=== PATIENT | female | born 2000 | race Caucasian/White ===

== ENCOUNTER 2020-09-27 11:29 | Emergency (ER) | payer OTHER, SELFPAY ==
--- NOTE | 2020-09-27 11:34 | ED.GENADULT ---
HPI - General Adult General Chief complaint: Urogenital-Female Stated complaint: uti symptoms Time Seen by Provider: 09/27/20 11:32 Source: patient Mode of arrival: ambulatory Limitations: no limitations History of Present Illness HPI narrative: 20 y/o female. PMH includes: None reported. [facility] with acute complaints of urinary frequency, urgency, malodorous urine, and dysuria for the past 4 days. She denies fever, chills. No abdominal pain, Flank pain, N/V. No pelvic pain or vaginal discharge. She adds to HPI, that she had taken 'Plan B' emergency contraceptive on Wednesday09/22/2020, and is also experiencing her monthly menstrual cycle now 2 weeks earlier than normal. No dizziness, chest pain, palpitations, dyspnea. She is not filling > 1 PPH. She has not yet sought out medical evaluation until now, today. She is without additional acute complaints of illness upon exam. Related Data Allergies Allergy/AdvReac Type Severity Reaction Status Date / Time No Known Allergies Allergy Verified 09/27/20 11:39 Review of Systems Review of Systems: Narrative: CONSTITUTIONAL: Denies fever, chills, sweats. EYES: Denies visual changes, redness, discharge. ENT: Denies rhinorrhea, congestion, sore throat, otalgia. CARDIOVASCULAR: Denies chest pain, palpitations, edema. RESPIRATORY: Denies dyspnea, wheezing, cough GASTROINTESTINAL: Denies abdominal pain, nausea, vomiting, diarrhea. GENITOURINARY: Positive urgency, dysuria. No hematuria, abnormal discharge. Early Menses. SKIN: Denies rash or itching. MUSCULOSKELETAL: Denies acute back pain, joint pain, or myalgia. NEUROLOGIC: Denies numbness, or focal weakness. PSYCHIATRIC: Denies anxiety or depression. All systems reviewed & are unremarkable except as noted in HPI and below Exam Narrative: Exam Narrative: GENERAL: This is a well-nourished, well-developed patient, in no apparent distress. HEAD: normocephalic, atraumatic. EYES: PERRL. EARS: External ears normal. NOSE: External nose normal. THROAT: Mucous membranes moist, posterior pharynx clear. NECK: Neck supple, non-tender. CARDIOVASCULAR: Regular rate and rhythm without murmurs, gallops, or rubs. RESPIRATORY: Clear to auscultation. Breath sounds equal bilaterally. GASTROINTESTINAL: Abdomen soft, non-tender, nondistended. Bowel sounds are active. No hepato-splenomegaly, or palpable masses. No guarding. No CVA tenderness. SKIN: warm, intact with no suspicious lesions or rash, good texture and turgor. NEURO: awake, alert, and oriented to person, place and time. There were no obvious focal neurologic abnormalities. Course Vital Signs Vital signs: Vital Signs Temperature 36.0 C L 09/27/20 12:00 Pulse Rate 95 09/27/20 12:00 Respiratory Rate 16 09/27/20 12:00 Blood Pressure 149/89 H 09/27/20 12:00 Pulse Oximetry 100 09/27/20 12:00 Temperature 36.0 C L 09/27/20 12:00 Pulse Rate 95 09/27/20 12:00 Respiratory Rate 16 09/27/20 12:00 Blood Pressure 149/89 H 09/27/20 12:00 Pulse Oximetry 100 09/27/20 12:00 The patient has been informed that they may have pre-hypertension or Hypertension based on a BP reading in the clinic. It is recommended that the patient call the primary care provider listed on their discharge instructions or a physician of their choice as soon as possible (within 1-2week) to arrange follow up for further evaluation of possible pre-hypertension or hypertension. Medical Decision Making MDM Narrative Medical decision making narrative: -Urine Dipstick reveals 1+ Leukocytes. Negative Nitrites, and 2 + blood (from active menstrual and most likely external contaminant). -Afebrile, non-tachycardic, and appears non-toxic. -Physical exam essentially benign. -Took Plan B Wednesday09/22/2020: Pt is concerned for early start of menses, actively bleeding. She has been further educated that the hormone Levonorgestrel is found in control pills, but Plan B contai
[2020-09-27 12:00] VITALS: BP 149/89; PULSE 95; RESP 16; TEMP 36; O2SAT 100
== END 2020-09-27 12:01 | disposition home or self-care (01) ==
PROVIDERS: Emergency Provider Nurse Practitioner Adult Health
DX: N93.9 Abnormal uterine and vaginal bleeding, unspecified (principal); N39.0 Urinary tract infection, site not specified
CPT/HCPCS: 81003; 87077; 87086; 87088; 87186; 99213; G0463

== ENCOUNTER 2020-11-29 17:18 | Emergency (ER) | payer OTHER, SELFPAY ==
[2020-11-29 17:28] VITALS: BP 156/107; PULSE 121; RESP 18; TEMP 36.4; O2SAT 100
--- NOTE | 2020-11-29 17:44 | ED.URI ---
HPI - URI/Sore Throat General Chief Complaint: Upper Respiratory Infection Stated Complaint: sinus issues Source: patient and RN notes reviewed Limitations: no limitations History of Present Illness HPI Narrative: The vaccinated overweight patient, non-smoker/nondrinker with pet cats, presents with congestion and cough. Patient states she has 1/2-week history of congestion, nasal drip, scantly productive cough preceded by sore throat. Symptoms are mild unrelieved with OTC preparations like Claritin; no fever, loss of taste/smell, S OB, sore throat now, CP, vomiting/diarrhea, rash, wheezing/sneezing, eye discharge. Related Data Allergies Allergy/AdvReac Type Severity Reaction Status Date / Time No Known Allergies Allergy Verified 11/29/20 17:28 Review of Systems Review of Systems: The patient has been informed that they may have pre-hypertension or Hypertension based on a BP reading in the department. I recommend that the patient call the primary care provider listed on their discharge instructions or a physician of their choice this week to arrange follow up for further evaluation of possible pre-hypertension or Hypertension General/Constitutional: No weight loss,fever Eyes: N0: Redness,discharge Ears/Nose/Throat: No: Epistaxis,ear discharge Respiratory: Denies: Hemoptysis Gastrointestinal: No Vomiting, Bleeding-rectal Skin: No Lumps, eruption Neurologic: No Focal Weakness,Sz Hematologic: Denies: Petechiae/Purpura Psychiatric: No: Suicida ideationl All Other Systems: Reviewed and Negative PMFSH Comments At time of signature, agree with nursing past medical, surgical, social and family history. There is no relevant family history pertinent to the presenting complaint Exam Narrative: General Appearance: Obese/well nourished EYE: PERRLA, Conjunctiva clear Ears: Auditory canal normal, TM normal Nose: Rhinorrhea, Mucousal erythema Mouth/Throat: MM moist, Uvula midline, Pharyngeal erythema Neck: Supple, No adenopathy Respiratory: No respiratory distress, Breath sounds equal, Clear to auscultation Cardiovascular: RRR, No JVD Musculoskeletal: Non tender, Normal strength Skin: Warm, Dry Neurological: A&O x3, CN II-XII intact Psychiatric: Normal mood, Normal affect Course Vital Signs Vital signs: Vital Signs Temperature 97.5 F L 11/29/20 17:28 Pulse Rate 121 H 11/29/20 17:28 Respiratory Rate 18 11/29/20 17:28 Blood Pressure 156/107 H 11/29/20 17:28 Pulse Oximetry 100 11/29/20 17:28 Temperature 97.5 F L 11/29/20 17:46 Pulse Rate 121 H 11/29/20 17:46 Respiratory Rate 18 11/29/20 17:46 Blood Pressure 156/107 H 11/29/20 17:46 Pulse Oximetry 100 11/29/20 17:46 MDM - URI/Sore Throat Lab Data Labs: Lab Results 11/29/20 Range/Units 17:25 POC SARS CoV-2 Ag Negative (Negative) Discharge Plan Discharge Clinical Impression: Purulent rhinitis Patient Disposition: Home, Self-Care Condition: Stable Instructions: Rhinosinusitis (ED) Additional Instructions: You may use and get some benefit from OTC preparations like Flonase, etc. Go to hospital to get PCR test; or ED if worse Prescriptions: New benzonatate [Tessalon Perles] 100 mg capsule 100 mg PO TID Qty: 20 RF: 1 azelastine 137 mcg (0.1 %) aerosol,spray 137 mcg NASAL Q12H Qty: 30 RF: 0 cefuroxime axetil 500 mg tablet 500 mg PO Q12H Qty: 14 RF: 0 Other Ambulatory Orders: SARS-CoV-2 RNA, Qual RT-PCR (Routine) Location: Determined by Patient Ordered By: Omer Lr Follow-up/Referrals: UNKNOWN,DOCTOR [Primary Care Provider] -
[2020-11-29 17:46] VITALS: BP 156/107; PULSE 121; RESP 18; TEMP 36.4; O2SAT 100
== END 2020-11-29 17:51 | disposition home or self-care (01) ==
PROVIDERS: Emergency Provider Emergency Medicine
DX: J31.0 Chronic rhinitis (principal); Z20.822 Contact with and (suspected) exposure to COVID-19
CPT/HCPCS: 87426; 99213; C9803; G0463

== ENCOUNTER 2022-03-04 14:53 | Emergency (ER) | payer OTHER, SELFPAY ==
--- NOTE | 2022-03-04 14:56 | ED.URI ---
HPI - URI/Sore Throat General Chief Complaint: Upper Respiratory Infection Stated Complaint: SORE THROAT/WHITE SPOTS/SWELLING Time Seen by Provider: 03/04/22 15:26 Source: patient and RN notes reviewed Mode of arrival: ambulatory Limitations: no limitations History of Present Illness HPI Narrative: 21-year-old female presents with concern for sore throat. Reports symptoms started 3 days ago and worsened today. She reports she saw white spots on her tonsils today. She reports headache. She denies other symptoms MD elicited complaint: sore throat Related Data Allergies Allergy/AdvReac Type Severity Reaction Status Date / Time No Known Allergies Allergy Verified 03/04/22 15:17 Review of Systems Review of Systems: CONSTITUTIONAL: Denies malaise, chills, sweats, or fever. EYES: Denies visual changes, redness, or discharge. ENT: Denies rhinorrhea, congestion, sinus pain, otalgia. Reports sore throat. CARDIOVASCULAR: Denies chest pain, palpitations, or edema. RESPIRATORY: Denies cough. Denies dyspnea. GASTROINTESTINAL: Denies abdominal pain, nausea, vomiting, diarrhea SKIN: Denies rash or itching. MUSCULOSKELETAL: Denies myalgia. NEUROLOGIC: Reports headache. All systems reviewed & are unremarkable except as noted in HPI and below PMFSH Comments At time of signature, agree with nursing past medical, surgical, social and family history. There is no relevant family history pertinent to the presenting complaint Exam Narrative: GENERAL: Well-appearing, well-nourished, and in no acute distress. HEAD: Normocephalic EYES: PERRLA, conjunctivae clear ENT: Nares clear, turbinates edematous and erythematous, clear discharge. Mucous membranes moist. TM pearly bagley with dull light reflex bilaterally; no tragal tenderness. Oropharynx not erythematous without lesions. Tonsils not enlarged and without exudate, no drooling, no hoarseness, no trismus, uvula midline. NECK: Supple. No lymphadenopathy CHEST: Clear to auscultation, breath sounds equal. No wheezing, rhonchi, rales, or stridor. No respiratory distress, speaks in full sentences. HEART: Regular rate and rhythm. No murmur heard. SKIN: Warm, dry, no rash. NEURO: Alert and oriented x3. PSYCH: Normal mood and affect Course Course Emergency Course: Patient is aware of diagnosis, understands and agrees to treatment plan. Anticipatory guidance given. Patient agrees to follow-up as directed and is aware of reasons to seek care at the emergency department. Portions of this record may have been created with voice recognition software Level of Care: [facility] Visit Vital Signs Vital signs: Reviewed. MDM - URI/Sore Throat MDM Narrative Medical decision making narrative: Differential diagnosis considered: Yin virus, strep pharyngitis, allergic rhinitis, upper respiratory tract infection, sinusitis, rhinosinusitis, nasopharyngitis. viral pharyngitis, otitis media, otitis externa, pneumonia, bronchitis, viral cough syndrome, viral syndrome, and influenza. Exam findings show no acute concerns or changes; patient is non-toxic appearing and is in no distress. Patient is appropriate for outpatient treatment and follow-up. Lab Data Attestation: I reviewed the patient's lab results. Critical Care Time Critical Care Time Critical Care Time: No Discharge Plan Discharge Clinical Impression: Acute tonsillitis Patient Disposition: Home, Self-Care Condition: Stable Instructions: Tonsillitis (ED) Additional Instructions: -Take the medication as prescribed. Throw away the toothbrush after 24hours of antibiotic. -Eat and drink things that are easy to swallow, like tea or soup, or popsicles to suck on. -Oral rinses such as: Salt water gargles and/or may use topical anesthetic (eg. Chloraseptic spray) or lozenges to relieve dryness or throat pain). -Take Tylenol and ibuprofen as needed for pain and fever as directed. -Frequent hand washing or hand [employer] is one of the best wa
[2022-03-04 15:18] VITALS: BP 147/86; PULSE 64; RESP 16; TEMP 37.1; O2SAT 99
== END 2022-03-04 16:08 | disposition home or self-care (01) ==
PROVIDERS: Emergency Provider Nurse Practitioner
DX: J03.90 Acute tonsillitis, unspecified (principal)
CPT/HCPCS: 87081; 87880; 99213; G0463

== ENCOUNTER 2022-12-15 16:05 | Emergency (ER) | payer OTHER, SELFPAY ==
[2022-12-15] VITALS (19 sets, daily range): BP systolic 102–152; BP diastolic 77–87; PULSE 72–103; RESP 10–25; TEMP 36.6–36.8; O2SAT 99–100
--- NOTE | ~2022-12-15 | CT_ITS ---
CT of the Abdomen and Pelvis: Indication: Abdominal pain Technique: 2.5 mm axial scans were obtained through the abdomen and pelvis following intravenous adm inistration of 100 cc of Omnipaque 350. Dose reduction technique was used on this scan by utilizing a utomated exposure control and iterative reconstruction technique. The dose-length product (DLP) was 9 68.03 mGy-cm. Findings: Scans through the lung bases are unremarkable. The liver, spleen, pancreas, gallbladder, adrenals and kidneys are within normal limits. No evidence of aortic aneurysm. No lymphadenopathy. No bowel obstruction or bowel wall thickening. There is no evidence to suggest acute appendicitis. Images through the pelvis were performed. Urinary bladder unremarkable. No significant adnexal mass s een. No ascites. Impression: No significant abnormalities seen. Reviewed, dictated and finalized at [facility]. Impression: No significant abnormalities seen.
--- NOTE | ~2022-12-15 | US_ITS ---
EXAMINATION: US pelvic complete w TV DATE: 12/15/2022 22:22 INDICATION: LLQ pain, left low back pain, r/o tors/cyst TECHNIQUE: Multiple transabdominal and endovaginal sonographic images of the pelvis were obtained. COMPARISON: None. FINDINGS: Uterus: 8.1 x 3.5 x 3.6 cm., Anteverted and anteflexed. Free fluid noted within the cervical canal. E ndometrial complex measures 6 mm. Right Ovary: 4.2 x 2.6 x 3.1 cm. Vascular flow is present. 2.3 cm simple ovarian cyst. Left Ovary: 2.7 x 1.4 x 1.7 cm. Vascular flow is present. No adnexal mass There is no free fluid in the pelvis. IMPRESSION: Normal left ovary. No sonographic evidence of left ovarian torsion. Reviewed, dictated and finalized at location [facility].
--- NOTE | 2022-12-15 20:00 | ECG_ITS ---
Measurements Intervals [place] Rate: 78 P: 57 KS: 155 QRS: 72 QRSD: 103 T: 23 QT: 339 QTc: 388 Interpretive Statements SINUS RHYTHM NORMAL ECG NO PREVIOUS ECG AVAILABLE FOR COMPARISON Electronically Signed On 12-16-2022 6:20:12 CDT by Woo Bhatt D.O.
[2022-12-15 20:26] LABS: Basophils Absolute Auto 0.1 K/mm3 (0.0-0.1); Basophils Percent Auto 0.7 % (0.2-1.2); Eosinophils Absolute Auto 0.1 K/mm3 (0-0.3); Eosinophils Percent Auto 0.7 % (0-4.4); Hematocrit 42.1 % (37.0-47.0); Hemoglobin 13.9 g/dL (12.0-15.0); Immature Granulocyte Absolute 0.01 K/mm3 (0.00-0.031); Immature Granulocyte Percent A 0.1 % (0-0.5); Lymphocytes Absolute Auto 2.06 K/mm3 (0.9-3.2); Lymphocytes Percent Auto 27.2 % (18.3-44.2); Mean Corpuscular Hemoglobin 29.1 pg (26-34); Mean Corpuscular Volume 88.3 fl (80-100); Mean Platelet Volume 10.9 fl (7.4-10.4); Monocytes Absolute Auto 0.7 K/mm3 (0.1-0.6); Monocytes Percent Auto 9.5 % (2.6-8.5); Neutrophils Absolute Auto 4.7 K/mm3 (1.3-6.7); Neutrophils Percent Auto 61.8 % (45.5-73.1); Platelet Count Result 193 k/mm3 (150-375); Red Blood Count 4.77 M/mm3 (4.2-5.4); Red Cell Distribution Width 12.2 % (11.5-14.5); White Blood Count 7.6 K/mm3 (4.5-10.0)
[2022-12-15 20:30] LABS: Appearance Urine Cloudy (Clear); Bacteria Urine None Seen /hpf; Bilirubin Urine Negative (Negative); Blood Urine Negative (Negative); Color Urine Yellow (Yellow); Glucose Urine UA Negative (Negative); Ketones Urine Trace mg/dL (Negative); Leukocyte Esterase Ur Negative LEU/UL (Negative); Nitrate Urine Negative (Negative); Non Pathogenic Casts 0-2; Protein Urine Negative (Negative); RBC Urine 0-2 /hpf (0-2); Specific Grav Ur 1.021 (1.001-1.035); Squamous Epithelial Cell Urine None seen /hpf (Few); Urobilinogen Urine 0.2 mg/dL (<2.0); WBC Urine 0-5 /hpf
[2022-12-15 20:31] LABS: Add Urine Microscopic? YES
[2022-12-15 20:38] LABS: Alanine Aminotransferase 25 U/L (6-35); Albumin Level 4.6 g/dL (3.5-5.1); Alkaline Phosphatase 50 U/L (38-126); Anion Gap 7 mmol/L (8-16); Aspartate Amino Transferase 23 U/L (14-36); Bilirubin,Total 0.4 mg/dL (0.2-1.3); Blood Urea Nitrogen 13 mg/dL (7-17); Carbon Dioxide 27 mmol/L (22-30); Chloride 103 mmol/L (98-107); Estimated CRCL calculation 152 ml/min; Estimated Glomerular Filt Rate > 60; Glucose 93 mg/dL (65-110); Lipase 83 U/L (23-300); Potassium 3.8 mmol/L (3.4-5.0); Sodium 137 mmol/L (137-145)
--- NOTE | 2022-12-15 21:50 | ED.ABDPAIN ---
HPI - Abdominal Pain General Chief Complaint: Abdominal Pain Stated Complaint: abdominal cramping, nausea Time Seen by Provider: 12/15/22 20:23 Source: patient Mode of arrival: ambulatory Limitations: no limitations History of Present Illness HPI narrative: Patient is a 22-year-old female who presents to the ED with report of nausea and lower abdominal cramping. Patient reports she has had nearly daily nausea over the last 5 weeks. She states she has maybe had 6 days of mild relief. She had originally attributed this to her Nexplanon control implant and had this removed last Wednesday. She had frequent bleeding with her Nexplanon and states her nausea was often worse with the bleeding episodes. She reports having mild improvement of her nausea since it was removed but states it still has occurred occasionally. She denies any vomiting. Over the last 5 days, she has had intermittent lower abdominal cramping, worse on the left side, occasionally radiating into her left lower back. She reported having worsening and more frequent pain today, which prompted her presentation. Pain is intermittent, occurs in spurts. Denies any pain upon my evaluation. Patient denies any fevers, diarrhea, constipation, vaginal discharge, dysuria, hematuria, urinary frequency. Related Data Allergies Allergy/AdvReac Type Severity Reaction Status Date / Time No Known Allergies Allergy Verified 12/15/22 19:59 Review of Systems Review of Systems: CONSTITUTIONAL: Denies fever, chills, or sweats. CARDIOVASCULAR: Denies chest pain. RESPIRATORY: Denies dyspnea. GASTROINTESTINAL: See HPI. GENITOURINARY: See HPI. SKIN: Denies rash or itching. MUSCULOSKELETAL: See HPI. NEUROLOGIC: Denies headache, numbness, or weakness. All systems reviewed & are unremarkable except as noted in HPI and below Exam Narrative: GENERAL: Well appearing, obese with BMI of 31.0, non-toxic, in no acute distress. HEAD: Normocephalic, atraumatic. NECK: Supple. No adenopathy, no masses. RESPIRATORY: Airway patent, respirations nonlabored. Clear to auscultation bilaterally, no rales, rhonchi, wheezing. CARDIOVASCULAR: Regular rate and rhythm without murmurs, rubs, or gallops. Radial pulses 2+ and equal bilaterally. ABDOMINAL: Soft, tenderness throughout left lower abdomen, suprapubic region, minimally in the epigastric region, nondistended, no hepatosplenomegaly. Normoactive BS. MUSCULOSKELETAL: Moves all extremities. Strength/ROM intact without gross deformities. SKIN: Warm, dry, normal color. No rashes. NEURO: A&O X3. Speech clear. Cranial nerves II-XII grossly intact. Steady gait. No ataxic movements. PSYCHIATRIC: Mildly anxious appearing. Normal interaction. Course Vital Signs Vital signs: Vital Signs Temperature 97.9 F 12/15/22 16:11 Pulse Rate 103 H 12/15/22 16:11 Respiratory Rate 18 12/15/22 16:11 Blood Pressure 152/87 H 12/15/22 16:11 Pulse Oximetry 99 12/15/22 16:11 Oxygen Delivery Room Air 12/15/22 16:11 Temperature 98.3 F 12/15/22 18:11 Pulse Rate 73 12/16/22 01:00 Respiratory Rate 16 12/16/22 01:00 Blood Pressure 111/60 12/16/22 01:13 Pulse Oximetry 100 12/15/22 19:59 Oxygen Delivery Room Air 12/15/22 16:11 MDM - Abdominal Pain MDM Narrative Medical decision making narrative: Patient presented to ED with 5-week history of nausea, 5-day history of intermittent lower abdominal cramping. Patient borderline tachycardic upon arrival, resolved by the time of my evaluation. Vitals otherwise stable. Basic laboratory studies unremarkable. No leukocytosis or anemia. No electrolyte abnormality. Stable kidney function. Urinalysis with trace ketones, no evidence for infection. Fluids started. Pelvic ultrasound obtained and showing right ovarian cyst. No abnormalities noted of left ovary. Normal vascular blood flow to bilateral ovaries. CT abdomen pelvis also obtained and showing appendicolith though no inflammator
[2022-12-15] MEDS: SODIUM CHLORIDE 0.9% IV 1,000 ML 999 ML IV CONT (22:12)
--- NOTE | 2022-12-15 22:23 | PC.NURSE ---
Pt stated they did not want to receive acetaminophen that was ordered. This RN did not administer medication. EDP Helen made aware.
[2022-12-16 00:01] VITALS: PULSE 74; RESP 16
[2022-12-16 00:20] VITALS: PULSE 75; RESP 16
[2022-12-16 00:30] VITALS: PULSE 72; RESP 16
[2022-12-16 00:45] VITALS: PULSE 71; RESP 17
[2022-12-16 01:00] VITALS: PULSE 73; RESP 16
[2022-12-16 01:13] VITALS: BP 111/60
== END 2022-12-16 02:53 | disposition home or self-care (01) ==
PROVIDERS: Emergency Medicine; Emergency Provider Physician Assistant
DX: K52.9 Noninfective gastroenteritis and colitis, unspecified (principal)
CPT/HCPCS: 36415; 74177; 76830; 76856; 80053; 81001; 81025; 83690; 85025; 93005; 96360; 96361; 99284; J7030; Q9967